=== PATIENT | male | born 1960 | race Caucasian/White ===

== ENCOUNTER 2019-03-04 14:40 | Emergency (ER) | payer OTHER, SELFPAY ==
[2019-03-04 16:13] LABS: Absolute Lymphocytes (CBC) 1.4 K/uL (0.7-4.9); Basophils % 0.5 % (0-1.3); Hematocrit 41.1 % (39.6-49.0); Lymphocytes % 12.5 % (15.3-44.8); MPV 7.8 fL (7.6-11.3); RBC Red Blood Cell Count 4.31 M/uL (4.33-5.43)
[2019-03-04 16:18] LABS: Urine Blood NEGATIVE (NEG); Urine Glucose NEGATIVE (NEG); Urine Protein NEGATIVE (NEG); Urine Specific Gravity 1.015 (1.005-1.030); Urine pH 8.5 (5.0-7.0)
[2019-03-04 16:43] LABS: Albumin 3.5 g/dL (3.4-5.0); Bilirubin Direct 0.1 mg/dL (0-0.2); Bilirubin Total 0.4 mg/dL (0.2-1.0); Potassium 4.1 mmol/L (3.5-5.1); Protein, Total 7.7 g/dL (6.4-8.2)
[2019-03-04] MEDS ORDERED: MORPHINE 4 MG/ML SYR ONE (16:51)
[2019-03-04] MEDS ORDERED: NA CHLORIDE 0.9% 1,000 ML ONE (16:51)
[2019-03-04] MEDS ORDERED: ONDANSETRON 4 MG/2 ML VIAL ONE (16:51)
[2019-03-04 17:21] LABS: Urine Bacteria <20 /HPF (NONE SEEN); Urine Culture Reflex Order NOT NEEDED; Urine RBC <5 /HPF (NONE SEEN)
--- NOTE | 2019-03-04 17:30 | RAD REPORT ---
EXAM DESCRIPTION: CT - Abdomen Pelvis W Contrast - 03/04/2019 5:21 pm CLINICAL HISTORY: flank pain, dysuria, patient also details low back pain and urinary frequency COMPARISON: Noncontrast CT study April 2016 TECHNIQUE: Biphasic, helical CT imaging of the abdomen and pelvis was performed following 100 ml non -ionic IV contrast. Oral contrast was given. All CT scans are performed using dose optimization technique as appropriate and may include automated exposure control or mA/KV adjustment according to patient size. FINDINGS: No suspicious findings in the lung bases. The liver, spleen, and pancreas show no suspicious findings. Cholecystectomy clips are present. No bi liary tree dilatation. Symmetric renal function is seen with no hydronephrosis or suspicious renal mass. No pyelonephritis o r acute parenchymal process. No bladder abnormalities. No adrenal abnormalities. No gastric dilatation or gastric wall thickening. No small bowel abnormality. Appendectomy clips are present. From cecum through the descending colon no acute findings seen. At the proximal aspect of th e sigmoid colon there is circumferential wall thickening. A single enlarged, inflamed diverticulum is seen. There is edema and stranding in the adjacent fat. No free air or pneumatosis. No abscess. No mass or bulky lymphadenopathy. Fat only right inguinal hernia is present. Several small ventral hernia defects are present at and below the umbilicus. No bowel involvement. No acute component seen. No suspicious bony findings. IMPRESSION: Infectious/inflammatory changes involving the proximal sigmoid colon. There is a single diverticulum that is involved. This is favored to be diverticulitis rather than colitis. No abscess, free air or surgically complicated component.
--- NOTE | 2019-03-04 18:39 | ER ---
Nurse's Notes [facility] Name: Karan Contreras Age: 59 yrs Sex: Male : 1960 Arrival Date: 03/04/2019 Time: 14:49 Bed 28 Private MD: Diagnosis: Sigmoid Diverticulitis Presentation: 03/04 14:58 Presenting complaint: Low back pain, lower abdominal pain, chills, nausea, headache, hb and urinary frequency x 3 days. Transition of care: patient was not received from another setting of care. Onset of symptoms was March 02, 2019. Risk Assessment: Do you want to hurt yourself or someone else? Patient reports no desire to harm self or others. Care prior to arrival: Medication(s) given: Excedrin at 0300. 14:58 Method Of Arrival: Ambulatory hb 14:58 Acuity: LEEANN 3 hb 16:18 Initial Sepsis Screen: Does the patient meet any 2 criteria? No. Patient's initial rv sepsis screen is negative. Does the patient have a suspected source of infection? No. Patient's initial sepsis screen is negative. Historical: - Allergies: 15:00 No Known Allergies; hb - Immunization history:: Adult Immunizations up to date. - Social history:: Smoking status: unknown. - Ebola Screening: : No symptoms or risks identified at this time. Screenin:17 Abuse screen: Denies threats or abuse. Denies injuries from another. Nutritional rv screening: No deficits noted. Tuberculosis screening: No symptoms or risk factors identified. Fall Risk None identified. Assessment: 16:18 General: Appears in no apparent distress. comfortable, Behavior is calm, cooperative. rv Pain: Complains of pain in right lower quadrant and left lower quadrant Pain currently is 5 out of 10 on a pain scale. Neuro: Level of Consciousness is awake, alert, obeys commands, Oriented to person, place, time, situation. Cardiovascular: Patient's skin is warm and dry. Respiratory: Airway is patent. GI: Abdomen is round non-distended, obese, Bowel sounds present X 4 quads. Abd is soft and non tender X 4 quads. : No signs and/or symptoms were reported regarding the genitourinary system. EENT: No signs and/or symptoms were reported regarding the EENT system. Derm: Skin is intact. Musculoskeletal: No signs and/or symptoms reported regarding the musculoskeletal system. 16:31 Reassessment: pt c/o pain provider notified. Patient states symptoms have not improved. tw2 Vital Signs: 15:00 BP 130 / 68; Pulse 92; Resp 16; Temp 99.8(TE); Pulse Ox 100% on R/A; Weight 149.69 kg; hb Height 5 ft. 7 in. (170.18 cm); Pain 8/10; 16:20 BP 137 / 79; Pulse 89; Resp 15; Pulse Ox 100% on R/A; rv 17:45 BP 121 / 81; Pulse 94; Resp 15; Pulse Ox 97% on R/A; rv 18:59 BP 125 / 76; Pulse 86; Resp 15; Pulse Ox 99% on R/A; rv 15:00 Body Mass Index 51.68 (149.69 kg, 170.18 cm) hb ED Course: 14:49 Patient arrived in ED. mr 14:59 Triage completed. hb 15:00 Arm band placed on. hb 15:15 Rhett Simons PA is PHCP. jmm 15:15 Steve Loera MD is Attending Physician. jmm 15:33 Marcos Escoto, RN is Primary Nurse. rv 15:55 Radiology exam delayed due to lab results not completed at this time. (BUN/Creatinine) nj IV insertion attempt and/or patient not having appropriate IV at this time. 16:10 Inserted saline lock: 20 gauge in left forearm, using aseptic technique. Blood rv collected. 16:10 Initial lab(s) drawn, by me, sent to lab. rv 16:15 First set of blood cultures drawn by me. rv 16:19 Patient has correct armband on for positive identification. Placed in gown. Bed in low rv position. Call light in reach. Side rails up X 1. Adult w/ patient. Pulse ox on. NIBP on. 16:35 Radiology exam delayed due to lab results not completed at this time. (BUN/Creatinine). nj 17:[address] via wheelchair. nj 17:22 CT completed. Patient tolerated procedure well. Patient moved back from CT. nj 17:26 CT Abd/Pelvis - IV Contrast Only In Process Unspecified. EDMS 18:34 William Chaudhari MD is Referral Physician. jmm 19:00 No provider procedures requiring assistance completed. IV discontinued, intact, rv bleeding controlled, No redness/swelling at site. Pressure dressing applied. Administered Medications: 16:56 Drug: NS 0.9% 1000 ml Route: IV; Rate: 1 bolus; Site: left forearm; rv 17:45 Follow up: IV Status: Completed infusion rv 16:57 Drug: morphine 4 mg Route: IVP; Site: left forearm; rv 17:44 Follow up: Response: No adverse reaction; Marked relief of symptoms; Pain is decreased; rv RASS: Alert and Calm (0) 16:57 Drug: Zofran 4 mg Route: IVP; Site: left forearm; rv 17:45 Follow up: Response: No adverse reaction rv 18:58 Drug: Cipro 500 mg Route: PO; rv 18:58 Follow up: Response: Medication administered at discharge. rv 18:58 Drug: Flagyl 500 mg Route: PO; rv 18:58 Follow up: Response: Medication administered at discharge. rv Outcome: 18:36 Discharge ordered by MD. matute 19:00 Discharged to home ambulatory. rv 19:00 Condition: good 19:00 Discharge instructions given to patient, Instructed on discharge instructions, follow up and referral plans. medication usage, Demonstrated understanding of instructions, follow-up care, medications, Prescriptions given X 4. 19:00 Patient left the ED. rv Signatures: Dispatcher [employer] EDMS Rhett Simons PA PA jmm Rivera, Mary CotoKristy, RN RN Catherine Sherman RN RN tw2 Paulino Amaro Ronaldo, RN RN rv
--- NOTE | 2019-03-04 18:40 | EDPHYS ---
Physician Documentation [facility] Name: Karan Contreras Age: 59 yrs Sex: Male : 1960 Arrival Date: 03/04/2019 Time: 14:49 Bed 28 Private MD: ED Physician Steve Loera HPI: 03/04 15:21 This 59 yrs old Male presents to ER via Ambulatory with complaints of jmm Abdominal Pain, Back Pain, Urinary Problem. 15:21 The patient presents with abdominal pain in the lower abdomen. Onset: The jmm symptoms/episode began/occurred gradually, 2 month(s) ago. The symptoms radiate to back. Modifying factors: The symptoms are alleviated by nothing, the symptoms are aggravated by. This is a 59 year old male no known chronic medical conditions that presents to the the ED with complaints of subscapular back pain for the past 2 months. Approximately a week ago pain decreased but began to radiate to his lower abdomen with increased urinary frequency. . Historical: - Allergies: 15:00 No Known Allergies; hb - Immunization history:: Adult Immunizations up to date. - Social history:: Smoking status: unknown. - Ebola Screening: : No symptoms or risks identified at this time. ROS: 15:58 Constitutional: Negative for fever, chills, and weight loss, Cardiovascular: Negative jmm for chest pain, palpitations, and edema, Respiratory: Negative for shortness of breath, cough, wheezing, and pleuritic chest pain. 15:58 Abdomen/GI: Positive for abdominal pain. 15:58 Back: Positive for pain with movement. 15:58 : Positive for urinary symptoms. 15:58 All other systems are negative. Exam: 15:58 Constitutional: This is a well developed, well nourished patient who is awake, alert, jmm and in no acute distress. Head/Face: atraumatic. Eyes: EOMI, no conjunctival erythema appreciated ENT: Moist Mucus Membranes Neck: Trachea midline, Supple Chest/axilla: Normal chest wall appearance and motion. Cardiovascular: Regular rate and rhythm. No edema appreciated Respiratory: Normal respirations, no respiratory distress appreciated 15:58 Back: Normal ROM Skin: General appearance color normal MS/ Extremity: Moves all extremities, no obvious deformities appreciated, no edema noted to the lower extremities Neuro: Awake and alert, normal gait Psych: Behavior is normal, Mood is normal, Patient is cooperative and pleasant 15:58 Abdomen/GI: Inspection: obese Bowel sounds: normal, Palpation: abdomen is soft and non-tender. Vital Signs: 15:00 BP 130 / 68; Pulse 92; Resp 16; Temp 99.8(TE); Pulse Ox 100% on R/A; Weight 149.69 kg; hb Height 5 ft. 7 in. (170.18 cm); Pain 8/10; 16:20 BP 137 / 79; Pulse 89; Resp 15; Pulse Ox 100% on R/A; rv 17:45 BP 121 / 81; Pulse 94; Resp 15; Pulse Ox 97% on R/A; rv 18:59 BP 125 / 76; Pulse 86; Resp 15; Pulse Ox 99% on R/A; rv 15:00 Body Mass Index 51.68 (149.69 kg, 170.18 cm) hb MDM: 15:21 Patient medically screened. ajit 18:34 Data reviewed: vital signs, nurses notes. Counseling: I had a detailed discussion with giovani the patient and/or guardian regarding: the historical points, exam findings, and any diagnostic results supporting the discharge/admit diagnosis, lab results, radiology results, the need for outpatient follow up, to return to the emergency department if symptoms worsen or persist or if there are any questions or concerns that arise at home. ED course: Patient is alert and non toxic in appearance in the ED. Patient advised to follow up with GI and otherwise given strict return precautions. Patient understood and agrees with the plan of care. . 03/04 15:46 Order name: Basic Metabolic Panel; Complete Time: 16:56 [facility] 03/04 15:46 Order name: CBC with Diff; Complete Time: 16:56 [facility] 03/04 15:46 Order name: Creatinine for Radiology; Complete Time: 16:32 [facility] 03/04 15:46 Order name: Hepatic Function; Complete Time: 16:56 [facility] 03/04 15:46 Order name: Lipase; Complete Time: 16:56 [facility] 03/04 15:46 Order name: Urine Culture [facility] 03/04 15:46 Order name: CT Abd/Pelvis - IV Contrast Only [facility] 03/04 15:46 Order name: Urine Microscopic Only; Complete Time: 17:28 [facility] 03/04 15:58 Order name: Blood Culture Adult (2) [facility] 03/04 15:58 Order name: Lactate; Complete Time: 16:56 [facility] 03/04 15:58 Order name: Procalcitonin; Complete Time: 17:18 [facility] 03/04 16:12 Order name: Urine Dipstick--Ancillary (enter results) [facility] 03/04 16:20 Order name: Urine Dipstick-Ancillary; Complete Time: 16:21 [facility] 03/04 15:46 Order name: IV Saline Lock; Complete Time: 16:17 [facility] 03/04 15:46 Order name: Labs collected and sent; Complete Time: 16:17 [facility] 03/04 15:46 Order name: Urine Dipstick-Ancillary (obtain specimen); Complete Time: 16:12 [facility] Administered Medications: 16:56 Drug: NS 0.9% 1000 ml Route: IV; Rate: 1 bolus; Site: left forearm; rv 17:45 Follow up: IV Status: Completed infusion rv 16:57 Drug: morphine 4 mg Route: IVP; Site: left forearm; rv 17:44 Follow up: Response: No adverse reaction; Marked relief of symptoms; Pain is decreased; rv RASS: Alert and Calm (0) 16:57 Drug: Zofran 4 mg Route: IVP; Site: left forearm; rv 17:45 Follow up: Response: No adverse reaction rv 18:58 Drug: Cipro 500 mg Route: PO; rv 18:58 Follow up: Response: Medication administered at discharge. rv 18:58 Drug: Flagyl 500 mg Route: PO; rv 18:58 Follow up: Response: Medication administered at discharge. rv Disposition: 03/05 08:16 Co-signature as Attending Physician, Steve Loera MD I agree with the assessment and ajti plan of care. Disposition: 03/04/19 18:36 Discharged to Home. Impression: Sigmoid Diverticulitis. - Condition is Stable. - Discharge Instructions: Diverticulitis. - Prescriptions for Zofran ODT 4 mg Oral tablet,disintegrating - place 1 tablet by TRANSLINGUAL route every 4-6 hours; 20 tablet. Cipro 500 mg Oral Tablet - take 1 tablet by ORAL route every 12 hours for 10 days; 20 tablet. Flagyl 500 mg Oral Tablet - take 1 tablet by ORAL route every 6 hours for 10 days; 40 tablet. Tylenol- Codeine #3 300-30 mg Oral Tablet - take 1 tablet by ORAL route every 6 hours As needed; 20 tablet. - Medication Reconciliation Form, Thank You Letter, Antibiotic Education, Prescription Opioid Use form. - Follow up: William Chaudhari MD; When: 2 - 3 days; Reason: Recheck today's complaints, Continuance of care, Re-evaluation by your physician. Signatures: Dispatcher [employer] EDSteve Cordova MD MD cha Mickail, Joel, PA PA jmm Baxter, Heather, CHICHO RN Marcos Mckinney RN RN rv Corrections: (The following items were deleted from the chart) 03/04 19:00 18:36 03/04/2019 18:36 Discharged to Home. Impression: Sigmoid Diverticulitis. rv Condition is Stable. Forms are Medication Reconciliation Form, Thank You Letter, Antibiotic Education, Prescription Opioid Use. Follow up: William Chaudhari; When: 2 - 3 days; Reason: Recheck today's complaints, Continuance of care, Re-evaluation by your physician. giovani
[2019-03-04] MEDS ORDERED: metroNIDAZOLE 500 MG TABLET ONE (18:52)
[2019-03-04] MEDS ORDERED: CIPROFLOXACIN HCL 500 MG TAB ONE (18:52)
[2019-03-04 20:25] VITALS: TEMP 99.8
[2019-03-04 20:51] VITALS: BP 125/76; O2SAT 99
== END 2019-03-04 19:00 | disposition home or self-care (01) ==
LOC: ER 14:40
DX: K57.32 Diverticulitis of large intestine without perforation or abscess without bleeding (principal)
CPT/HCPCS: 96361; 87040 ×2; 87088; 85025; 87086; 80048; 36415; 80076; 83605; 83690; 84145; 74177; 96375; 96374; 99284; Q9967; J7030; J2405; 81003; 81015

== ENCOUNTER 2023-01-01 10:09 | Day surgery (SDC) | payer OTHER ==
[2022-12-29 10:42] LABS: Potassium 3.9 mEq/L (3.5-5.1)
[2023-01-01] MEDS ORDERED: Ringers Lactate 1,000 ML IV ONE (10:51)
[2023-01-01] MEDS ORDERED: propofoL 200 MG/20 ML VIAL IV ONE (11:52)
[2023-01-01] MEDS ORDERED: LIDOCAINE 1% MPF 5 ML VIAL ONE (11:52)
[2023-01-01 13:13] VITALS: BP 153/80; TEMP 97.4; O2SAT 99
== END 2023-01-01 13:15 | disposition home or self-care (01) ==
LOC: PRE 10:09 → OR 13:15
PROVIDERS: ATTEND Surgery
PROC: 0DBL8ZX Excision of Transverse Colon, Via Natural or Artificial Opening Endoscopic, Diagnostic (ICD-10-PCS; 2023-01-01)
PROC: 0DBM8ZX Excision of Descending Colon, Via Natural or Artificial Opening Endoscopic, Diagnostic (ICD-10-PCS; principal; 2023-01-01 12:00)
DX: Z12.11 Encounter for screening for malignant neoplasm of colon (principal); D12.3 Benign neoplasm of transverse colon
CPT/HCPCS: 45385; 80048; 36415; 88305; J2704; J2001; J7120